=== PATIENT | male | born 1960 | race Caucasian/White ===

== ENCOUNTER → 2019-10-23 | Outpatient (CLI) | payer OTHER ==
[2015-03-23 20:00] VITALS: BP 110/63
--- NOTE | 2019-10-23 12:20 | RAD ---
EXAM: Lumbar spine, 2 views. HISTORY: Pain. COMPARISON: None. FINDINGS: 2 views of the lumbar spine are obtained. There is mild lumbar levoscoliosis. There is degenerative endplate remodeling at all levels. There is facet arthropathy predominantly at the mid lower lumbar levels. IMPRESSION: 1. Multilevel degenerative change. 2. No acute osseous finding. Electronically signed by: Ayla Henson MD (10/23/2019 12:17 PM) [facility] – [place]
== END | disposition home or self-care (01) ==
LOC: RAD 10:52
PROVIDERS: ATTEND Surgery
DX: M47.816 Spondylosis without myelopathy or radiculopathy, lumbar region (principal); M12.88 Other specific arthropathies, not elsewhere classified, other specified site; M41.86 Other forms of scoliosis, lumbar region
CPT/HCPCS: 72100

== ENCOUNTER → 2020-04-13 | Outpatient (CLI) | payer OTHER ==
[2015-03-23 20:00] VITALS: BP 110/63
--- NOTE | 2020-04-13 14:30 | RAD ---
EXAM: LEFT KNEE, 2 VIEWS. HISTORY: Left knee pain. COMPARISON: None. FINDINGS: There is extensive periosteal reaction throughout the visualized femur. No fractures are identified. The medial compartmental joint space is mostly effaced with remodeling of the medial femoral condyle and medial tibial plateau. There is mild varus angulation and lateral subluxation of the tibia. There is a large joint effusion. Small loose bodies are noted within the suprapatellar recess and anterior intercondylar notch measuring up to 6 mm. Atherosclerotic calcifications are noted. IMPRESSION: 1. Severe medial compartment predominant osteoarthritis with lateral subluxation of the tibia and varus angulation. 2. Large joint effusion. 3. Extensive periosteal reaction throughout the visualized femur. Correlate for hypertrophic osteopathy and potential pulmonary causes. Electronically signed by: Deepthi Valladares MD (04/13/2020 2:27 PM) [id number]
== END | disposition home or self-care (01) ==
LOC: RAD 11:28
PROVIDERS: ATTEND Surgery
DX: M17.12 Unilateral primary osteoarthritis, left knee (principal); M25.462 Effusion, left knee; I70.292 Other atherosclerosis of native arteries of extremities, left leg
CPT/HCPCS: 73560